=== PATIENT | female | born 1940 | race Two or more races ===

== ENCOUNTER 2022-09-16 08:17 | Emergency (ER) | payer OTHER ==
[~2022-09-16] VITALS: Ht 167.6 cm; Wt 79.4 kg
--- NOTE | 2022-09-16 08:30 | NUR ---
pt bib ra 86 C/O OF SOB SINCE YESTERDAY WITH FEVER. + COVID TEST DONE YESTERDAY. NO M,EDS TAKEN. SHE STAYS IN THE [place] ON O2 AT 2L. SHE DOESNOT TAKE TYLENOL BECAUSE IT MAKES HER STOMACH UPSET. 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 PT PUT ON NEGATIVE PRESSURE ROOM AND O2 AT 2L. PUT ON BEDSIDE MONITOR.
--- NOTE | 2022-09-16 08:35 | NUR ---
COVID TEST DONE AND SENT TO LAB
[2022-09-16 09:11] LABS: BASOPHILS % (AUTO) 0.4 % (0.0-2.0); HEMATOCRIT 35 % (33-45); HEMOGLOBIN 11.8 g/dL (11.5-14.8); LYMPHOCYTES # (AUTO) 0.6 K/uL (0.8-4.8); LYMPHOCYTES % (AUTO) 10.3 % (20.0-44.0); MEAN CORPUSCULAR HGB CONC 34 g/dl (31.0-36.0); MEAN CORPUSCULAR VOLUME 95 fL (82-100); MONOCYTES # (AUTO) 1.1 K/uL (0.1-1.30); MONOCYTES % (AUTO) 17.8 % (2.0-12.0); NEUTROPHILS # (AUTO) 4.3 K/uL (1.8-8.9); NEUTROPHILS % (AUTO) 71.5 % (43.0-81.0); PLATELET COUNT (AUTO) 110 K/uL (150-450); RED BLOOD CELL COUNT(AUTO) 3.73 MIL/uL (4.0-5.2)
[2022-09-16 09:20] LABS: CALCIUM, SERUM 8.8 mg/dL (8.5-10.1); CARBON DIOXIDE 28 mmol/L (21-32); CHLORIDE 99 mmol/L (98-107); GLUCOSE 99 mg/dL (74-106); POTASSIUM 3.7 mmol/L (3.5-5.1); SODIUM SERUM 136 mmol/L (136-145); UREA NITROGEN, BLOOD 14 mg/dL (7-18)
[2022-09-16 09:34] LABS: ALANINE AMINOTRANSFERASE 24 U/L (12-78); ALBUMIN 3.1 g/dL (3.4-5.0); ALKALINE PHOSPHATASE 53 U/L (46-116); ASPARTATE AMINOTRANSFERASE 22 U/L (15-37); BILIRUBIN,DIRECT 0.1 mg/dL (0.0-0.2); BILIRUBIN,TOTAL 0.5 mg/dL (0.2-1.0); TOTAL PROTEIN, SERUM 6.5 g/dL (6.4-8.2)
--- NOTE | 2022-09-16 10:24 | NUR ---
MOVE SHEET SUBMITTED.
[2022-09-16] MEDS ORDERED: ATOR10TA PO (10:36)
[2022-09-16] MEDS ORDERED: FURO20TA4 PO (10:36)
[2022-09-16] MEDS ORDERED: METO50TA16 PO (10:36)
[2022-09-16] MEDS ORDERED: AMIO200T5 PO (10:36)
[2022-09-16] MEDS ORDERED: PRED5TAB PO (10:36)
[2022-09-16] MEDS ORDERED: BUME1TAB8 PO (10:36)
[2022-09-16] MEDS ORDERED: APIX2.5T PO (10:36)
--- NOTE | 2022-09-16 11:19 | NUR ---
ROOM 105
--- NOTE | 2022-09-16 11:57 | NUR ---
COVID + PER LAB. ERMD AWARE.
--- NOTE | 2022-09-16 13:24 | NUR ---
[facility] CALLED AND LEFT CONTACT # [phone]
[2022-09-16] MEDS ORDERED: DEXAMETHASONE SOD PHOSPHATE 10 MG/ML VIAL IV ONE (14:00)
[2022-09-16] MEDS ORDERED: DEXAMETHASONE SOD PHOSPHATE 10 MG/ML VIAL ONE (14:02)
[2022-09-16 14:57] VITALS: BP 157/59
--- NOTE | 2022-09-16 15:04 | NUR ---
BASHIR HOWELL AMANDA [phone] X [phone]
--- NOTE | 2022-09-16 15:16 | NUR ---
PT ACCEPTED TO [facility] UNDER DR[facility] ROWAN CASTRO. ROOM 2409 PLEASE CALL [phone] FOR REPORT. TRANSPORT WILL BE WITH [facility] ETA IS 1800 PER BASHIR.
--- NOTE | 2022-09-16 17:17 | NUR ---
REPORT GIVEN TO AIDAN VERGARA ROOM 2409 [facility] REE FOR ZANDRA
--- NOTE | 2022-09-16 18:00 | NUR ---
PATIENT PICKUP BY [facility]. STAFF AND REPORT WAS GIVEN FOR TRANSFER TO [facility].
[2022-09-16 19:19] LABS: BAND % (MANUAL) 3 % (0.0-5.0); LYMPHOCYTES % (MANUAL) 9 % (16-48); MONOCYTES % (MANUAL) 13 % (0-11.0); NEUTROPHILS % (MANUAL) 75 (42-76)
== END 2022-09-16 18:00 | disposition short-term general hospital (02) ==
LOC: ER 08:41
DX: U07.1 COVID-19 (principal); Z88.8 Allergy status to other drugs, medicaments and biological substances
CPT/HCPCS: 99285; 96374; 71045; 87426; 93005 ×3; 85025; 80048; 80076; 36415; 84484 ×2; 83880; 85007; J1100; C9803